=== PATIENT | female | born 1960 | race Caucasian/White ===

== ENCOUNTER 2018-10-12 21:41 | Emergency (ER) | payer OTHER ==
[~2018-10-12] VITALS: Wt 75.5 kg
[2018-10-13] MEDS ORDERED: LORA-441 PO (00:03)
--- NOTE | 2018-10-13 00:16 | ERD ---
ER Documentation Chief Complaint Chief Complaint states came from clinic, c/o htn,dizziness. hx of htn HPI 58-year-old woman who suffers from panic attacks had one this afternoon causing blood pressure elevation, she went to the clinic and they referred her here for hypertension. She states she has had multiple similar episodes in the past. She has been using her antihypertensive medications as prescribed. She denies chest pain or shortness of breath, no loss of consciousness, no headache or blurry vision. Most of her symptoms resolved while in the waiting room and she states her blood pressure has improved ROS All systems reviewed and are negative except as per history of present illness. Medications Home Meds Active Scripts Lorazepam* (Ativan*) 0.5 Mg Tablet, 0.5 MG PO Q8H PRN for ANXIETY, #12 TAB Prov:SISSY BRADY MD 10/13/18 Allergies Allergies: Coded Allergies: No Known Drug Allergies (Verified Allergy, Unknown, 10/12/18) PMhx/Soc Hypertension, anxiety History of Surgery: Yes ( 3, Uterus, Ovary, Appendicitis) Anesthesia Reaction: No Hx Neurological Disorder: No Hx Respiratory Disorders: No Hx Cardiac Disorders: Yes (HTN) Hx Psychiatric Problems: No Hx Miscellaneous Medical Probl: Yes (Thyroid) Hx Alcohol Use: No Hx Substance Use: No Hx Tobacco Use: No Smoking Status: Never smoker FmHx Family History: No diabetes Physical Exam Vitals Vital Signs Date Temp Pulse Resp B/P (MAP) Pulse Ox O2 O2 Flow FiO2 Time Delivery Rate 10/12/18 98.0 78 15 167/90 99 Room Air 23:52 (115) 10/12/18 97.8 86 18 219/93 98 21:51 (135) Physical Exam Const: No acute distress Head: Atraumatic Eyes: Normal Conjunctiva ENT: Normal External Ears, Nose and Mouth. Neck: Full range of motion. No meningismus. Resp: Clear to auscultation bilaterally Cardio: Regular rate and rhythm, no murmurs Abd: Soft, non tender, non distended. Normal bowel sounds Skin: No petechiae or rashes Back: No midline or flank tenderness Ext: No cyanosis, or edema Neur: Awake and alert x3, no focal deficits or facial asymmetry Psych: Normal Mood and Affect Results 24 hrs Current Medications Medications Dose Sig/Bishnu Start Time Status Last (Trade) Ordered Route PRN Stop Time Admin Dose Reason Admin Lorazepam 0.5 mg ONCE ONCE 10/13/18 (Ativan) PO 00:30 10/13/18 00:31 Procedures/MDM IV line was established patient was placed on registered nurse cardiac rhythm strip revealed a sinus rhythm at about 80 bpm with upright P and T waves. Patient was afebrile Patient's systolic blood pressure was initially over 200 mmHg although while in the ER resting in her stretcher blood pressure improved and systolic fell about 50 points. Her anxiety symptoms resolved as well. I administered lorazepam 0.5 mg p.o. x1 for residual mild anxiety and recommended discharge and follow-up with PMD for continued outpatient management . Differential diagnoses considered, included but not limited to acute coronary syndrome, pulmonary embolism, aortic dissection, abdominal aortic aneurysm, sepsis, stroke, meningitis, encephalitis, pneumonia, appendicitis, cholecystitis, bowel obstruction, pyelonephritis, nephrolithiasis, cystitis, as well as metabolic, hematologic, and electrolyte abnormalities. As well as absces s, cellulitis, fractures, and dislocations. Patient feels much better at this time, and vital signs are normal, symptoms have improved. I did give strict instructions to return to the ED if symptoms continue or worsen, patient will otherwise follow-up with primary care physician. Patient understood instructions and agreed to plan. Disclaimer: Inadvertent spelling and grammatical errors are likely due to EHR/dictation software use and do not reflect on the overall quality of patient care. Also, please note that the electronic time recorded on this note does not necessarily reflect the actual time of the patient encounter. Departure Diagnosis: Primary Impression: Hypertension Hypertension type: essential hypertension Qualified Codes: I10 - Essential (primary) hypertension Additional Impression: Anxiety in acute stress reaction Condition: Good Patient Instructions: Hypertension, Established, Panic Attack SISSY BRADY MD Oct 13, 2018 00:16
[2018-10-13] MEDS ORDERED: LORAZEPAM 0.5 MG TAB PO ONE (00:30)
[2018-10-13 01:13] VITALS: BP 146/82; PULSE 73; RESP 15
== END 2018-10-13 01:17 | disposition home or self-care (01) ==
LOC: E/R 21:41
DX: I10 Essential (primary) hypertension (principal); F41.9 Anxiety disorder, unspecified; F43.0 Acute stress reaction
CPT/HCPCS: Z7502; Z7610; 99283